=== PATIENT | female | born 1965 | race Caucasian/White ===

== ENCOUNTER 2017-12-21 11:16 | Outpatient (CLI) | payer OTHER ==
[~2017-12-21 11:16] MED LIST: TRAMADOL HCL-AP1 TAB PO
== END 2017-12-21 11:36 | disposition home or self-care (01) ==
LOC: RAD 11:16
DX: M25.551 Pain in right hip (principal); M25.552 Pain in left hip; M25.561 Pain in right knee; M25.562 Pain in left knee

== ENCOUNTER 2017-12-21 12:51 | Outpatient (CLI) | payer OTHER | END 2017-12-21 13:03 | disposition home or self-care (01) | LOC: SONOGRAMA 12:51 | DX: M25.512 Pain in left shoulder (principal) ==

== ENCOUNTER 2018-12-05 13:24 | Outpatient (CLI) | payer OTHER | END 2018-12-05 13:27 | disposition home or self-care (01) | LOC: RAD 13:24 | DX: M25.561 Pain in right knee (principal); M25.562 Pain in left knee ==

== ENCOUNTER → 2019-01-03 | Outpatient (CLI) | payer OTHER | END | disposition home or self-care (01) | LOC: MAMO-SONO 10:45 → SONOGRAMA 11:23 | DX: M25.512 Pain in left shoulder (principal) ==

== ENCOUNTER → 2019-03-01 | Emergency (ER) | payer OTHER ==
[~2019-03-01] VITALS: Ht 154.9 cm; Wt 88.0 kg
[~2019-03-01] MED LIST changes: +INTESTINEX680 M1 PO; +LEVSIN/SL0.125 MG SL
== END | disposition home or self-care (01) ==
LOC: ER 01:43
DX: K62.5 Hemorrhage of anus and rectum (principal)

== ENCOUNTER 2021-03-01 21:34 | Inpatient (IN) | payer OTHER ==
[~2021-03-01] VITALS: Ht 165.1 cm; Wt 88.9 kg
[2021-03-05] MEDS ORDERED: CIPRO500 MG PO (15:39)
[2021-03-05] MEDS ORDERED: INTESTINEX680 M1 PO (15:40)
[2021-03-05] MEDS ORDERED: FLAGYL500MG PO (15:40)
== END 2021-03-05 16:54 | disposition home or self-care (01) | DRG 391 ==
LOC: ER 21:34 → MEDI 03-02 07:54
PROVIDERS: ADMIT Internal Medicine; ATTEND Internal Medicine
PROC: BW21ZZZ Computerized Tomography (CT Scan) of Abdomen and Pelvis (ICD-10-PCS; principal; 2021-03-02)
DX: K52.89 Other specified noninfective gastroenteritis and colitis (principal); K55.019 Acute (reversible) ischemia of small intestine, extent unspecified; K62.5 Hemorrhage of anus and rectum; E86.0 Dehydration; Z20.822 Contact with and (suspected) exposure to COVID-19

== ENCOUNTER 2022-05-24 02:34 | Emergency (ER) | payer OTHER ==
[~2022-05-24] VITALS: Ht 157.5 cm; Wt 90.7 kg
[~2022-05-24 02:34] MED LIST changes: +CIPRO500 MG PO; +FLAGYL500MG PO
== END 2022-05-24 13:25 | disposition home or self-care (01) ==
LOC: ER 02:34
DX: K29.70 Gastritis, unspecified, without bleeding (principal); R10.11 Right upper quadrant pain; R11.10 Vomiting, unspecified; Z91.041 Radiographic dye allergy status

== ENCOUNTER 2024-12-10 19:27 | Emergency (ER) | payer OTHER ==
[~2024-12-10] VITALS: Ht 160 cm; Wt 72.6 kg
== END 2024-12-10 21:15 | disposition left against medical advice (07) ==
LOC: ER 19:27
DX: Z53.21 Procedure and treatment not carried out due to patient leaving prior to being seen by health care provider (principal)